=== PATIENT | female | born 1945 | race Caucasian/White ===

== ENCOUNTER 2025-04-23 13:48 | Emergency (ER) | payer MEDICARE, SELFPAY ==
[2025-04-23 13:54] VITALS: PULSE 89; RESP 17; TEMP 36.9; O2SAT 100; BMI 28.6
--- NOTE | 2025-04-23 15:33 | ED_ITS ---
HPI - Nausea/Vomiting/Diarrhea General Chief complaint: Nausea/Vomiting/Diarrhea Stated complaint: Drank Bad Water, Blood in Stool, Cramps,Diarrhea Time Seen by Provider: 04/23/25 15:33 Source: patient Mode of arrival: Ambulatory History of Present Illness HPI Narrative: 79-year-old female presents with diarrhea since yesterday with a tinge of blood in the urine and stool sample. Patient has been drinking filtered water that is 6-month-old after returning to their home in [facility] after being away along with abdominal cramps, no nausea, vomiting, urinary complaints, back pain, shortness of breath, chest pain, fever, chills, or body aches. Patient is able to eat and drink with no difficulty. Other than what is stated 14 point review of system is negative Related Data Home Medications ?Medication ?Instructions ?Recorded ?Confirmed cholecalciferol (vitamin D3) 50 50 mcg PO DAILY 08/20/21 mcg (2,000 unit) tablet Previous Rx's ?Medication ?Instructions ?Recorded acyclovir 400 mg tablet 400 mg PO TID 5 days #30 tab s 08/20/21 triamcinolone acetonide 0.1 % 1 applic topical BID PRN rash #30 04/10/22 topical cream grams betamethasone valerate 0.1 % 1 applic topical DAILY AR N eczema 04/18/22 topical cream #45 grams simvastatin 10 mg tablet See Rx Instructions .Route 0 06/14/22 .COMPLEX #90 tabs Allergies Allergy/AdvReac Type Severity Reaction Status Date / Time No Known Drug Allergies Allergy Verified 04/23/25 13:54 Review of Systems Review of Systems ROS Unobtainable: All systems reviewed & are unremarkable except as noted in HPI and below Patient History Medical History (Updated 04/23/25 @ 16:13 by Derrick Mcfarlane DO) Skin rash (~2018) Anxiety Shoulder pain (~2008) Measles Chicken pox Herpes Thyroid nodule (~2002) Screening for diabetes mellitus Familial hypercholesterolemia Screening for malignant neoplasm of colon performed Encounter for wellness examination Nonspecific abnormal results of thyroid function study Surgical History (Updated 08/26/21 @ 18:49 by Yue Squires) Anesthesia History of hernia repair H/O partial thyroidectomy (~2008) Family History (Updated 08/26/21 @ 18:51 by Yue Squires) Father No problems noted. Mother Hypertension Social History Smoking Status: Former smoker Smoking Status: Former smoker Exam Narrative Exam Narrative: GENERAL: [79] year old patient appears stated age. Well-developed patient, in mild distress. HEAD: Atraumatic. Normocephalic. EYES: Pupils equal round and reactive. Extraocular motions intact. No scleral icterus. No injection or drainage. ENT: Nose without bleeding, purulent drainage. Throat without erythema, tonsillar hypertrophy or exudate. Airway patent. NECK: Trachea midline. Non tender CARDIOVASCULAR: Regular rate and rhythm without murmurs, gallops, or rubs. RESPIRATORY: Clear to auscultation. Breath sounds equal bilaterally. No wheezes, rales, or rhonchi. GASTROINTESTINAL: Abdomen soft, non-tender, nondistended. EXTREMITIES: No edema or joint tenderness. BACK: Nontender without deformity or crepitance. No flank tenderness. NEURO: AOx3. SKIN: No rash or erythema of visible areas Initial Vital Signs Initial Vital Signs: Vital Signs Temperature 98.4 F 04/23/25 13:54 Pulse Rate 89 04/23/25 13:54 Respiratory Rate 17 04/23/25 13:54 Pulse Oximetry 100 04/23/25 13:54 Oxygen Delivery Method Room Air 04/23/25 13:54 Course Orders Ordered: ED Orders 04/23/25 14:40 GI Panel (Film Array) Stat Vital Signs Vital signs: Vital Signs - 8 hr 04/23/25 13:54 Temperature 98.4 F Pulse Rate 89 Respiratory Rate 17 Pulse Oximetry 100 Oxygen Delivery Method Room Air MDM - Nausea/Vomiting/Diarrhea Lab Data Labs: Lab Results 04/23/25 Range/Units 14:40 Stl C. cayetanensis PCR Not detected (Not Detect) Stool Rotavirus (PCR) Not detected (Not Detect) Stool Adenovirus (PCR) Not detected (Not Detect) Stool Astrovirus (PCR) Not detected (Not Detect) Stool Cryptosporidium PCR Not detected (Not Detect) Stl E.coli Shiga Tox PCR Not detected (Not Detect) St Sh/Enteroin Ecoli PCR Not detected (Not Detect) Stl Enterotoxigenic E PCR Not detected (Not Detect) Stool EPEC (PCR) Not detected (Not Detect) Stl E. histolytica PCR Not detected (Not Detect) Stool Giardia Lamblia PCR Not detected (Not Detect) Stool Sapovirus (PCR) Not detected (Not Detect) Stl P. shigelloides PCR Not detected (Not Detect) St Y.enterocolitica PCR Not detected (Not Detect) Stool Vibrio (PCR) Not detected (Not Detect) Stl Vibrio cholerae PCR Not detected (Not Detect) Stl Enteroaggr Ecoli PCR Not detected (Not Detect) Stl Norovirus GI/GII PCR Not detected (Not Detect) Campylobacter (PCR) Not detected (Not Detect) C. difficile Tox (PCR) Not detected (Not Detect) Salmonella (PCR) Not detected (Not Detect) MDM Narrative Medical decision making narrative: Vital signs nurse triage note medication list previous ER visits and all imaging studies reviewed. Nontoxic nonseptic afebrile able to tolerate p.o. challenge with martha sandy here. Differential diagnosis includes C diff Salmonella flu COVID are all negative. Return With new or worsening symptoms and to keep hydrated Discharge Plan Departure Patient Disposition: Home Clinical Impression: Diarrhea Qualifiers: Diarrhea type: unspecified type Qualified Code(s): R19.7 - Diarrhea, unspecified Instructions: DI for Dehydration -- Adult Activity Restrictions/Additional Instructions: Return with new or worsening symptoms. Keep hydrated Prescriptions: No Action triamcinolone acetonide 0.1 % cream 1 applic topical BID PRN (Reason: rash) Qty: 30 0RF simvastatin 10 mg tablet See Rx Instructions .ROUTE .COMPLEX Qty: 90 0RF Dose Instruction: TAKE ONE TABLET BY MOUTH AT BEDTIME Rx Instructions: TAKE ONE TABLET BY MOUTH AT BEDTIME acyclovir 400 mg tablet 400 mg PO TID 5 Days Qty: 30 4RF cholecalciferol (vitamin D3) 50 mcg (2,000 unit) tablet 50 mcg PO DAILY betamethasone valerate 0.1 % cream 1 applic topical DAILY PRN (Reason: eczema) Qty: 45 0RF Referrals: Carlos Alberto Li MD [Primary Care Provider, Family Practice] Stand Alone Forms: Patient Portal/API
[2025-04-23 16:05] LABS: Adenovirus F 40/41 Not Detected (Not Detect); Astrovirus Not Detected (Not Detect); Campylobacter Not Detected (Not Detect); Clostridium difficile toxin AB Not Detected (Not Detect); Cryptosporidium Not Detected (Not Detect); Cyclospora cayetanensis Not Detected (Not Detect); Entamoeba histolytica Not Detected (Not Detect); Enteroaggregative E.coli Not Detected (Not Detect); Enteropathogenic E.coli Not Detected (Not Detect); Enterotoxigenic E.coli It/st Not Detected (Not Detect); Giardia lamblia Not Detected (Not Detect); Norovirus GI/GII Not Detected (Not Detect); Plesiomonsa shigelloides Not Detected (Not Detect); Rotavirus A Not Detected (Not Detect); Salmonella Not Detected (Not Detect); Sapovirus Not Detected (Not Detect); Shiga-like toxin-prod E.coli Not Detected (Not Detect); Shigella/Enteroinvasive E.coli Not Detected (Not Detect); Vibrio Not Detected (Not Detect); Vibrio cholerae Not Detected (Not Detect); Yersinia enterocolitica Not Detected (Not Detect)
--- NOTE | 2025-04-23 16:27 | PC.NURSE ---
Pt reports having diarrhea. States she had coffee that was made with 6 month old standing water when she felt chills and fever and overall unwell. pt able to eat and drink w/o issue. no n/v
[2025-04-23 16:30] VITALS: BP 135/64; PULSE 75; RESP 18; O2SAT 98
== END 2025-04-23 16:32 | disposition home or self-care (01) ==
PROVIDERS: Emergency Provider Family Medicine; PCP Family Medicine
DX: R19.7 Diarrhea, unspecified (principal)
CPT/HCPCS: 87507; 99281; 99282